=== PATIENT | male | born 1995 | race Caucasian/White ===

== ENCOUNTER 2019-08-28 15:44 | Outpatient (CLI) | payer OTHER | END 2019-08-28 15:45 | disposition critical access hospital (66) | LOC: EMS 15:44 | PROVIDERS: ATTEND Surgery | DX: S01.81XA Laceration without foreign body of other part of head, initial encounter (principal); S81.012A Laceration without foreign body, left knee, initial encounter; V57.5XXA Driver of pick-up truck or van injured in collision with fixed or stationary object in traffic accident, initial encounter; Y92.413 State road as the place of occurrence of the external cause | CPT/HCPCS: A0425; A0429 ==

== ENCOUNTER 2019-08-28 15:53 | Emergency (ER) | payer OTHER ==
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
[2019-08-28] MEDS ORDERED: LIDOCAINE-EPINEPH-TETRACAINE 3 ML SYRINGE TOP STA (16:16)
[2019-08-28] MEDS ORDERED: IOVERSOL 320 100 ML VIAL IVP ONE ×2 (16:21→18:08)
[2019-08-28 16:22] VITALS: BP 154/82
[2019-08-28] MEDS ORDERED: BUFFERED LIDOCAINE 10 ML SYRINGE SUBQ STA (16:30)
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
== END 2019-08-28 18:14 | disposition home or self-care (01) ==
LOC: EDUNIT# → ED 15:53
DX: S81.019A Laceration without foreign body, unspecified knee, initial encounter (principal); S01.81XA Laceration without foreign body of other part of head, initial encounter; S30.1XXA Contusion of abdominal wall, initial encounter; S27.329A Contusion of lung, unspecified, initial encounter; V89.2XXA Person injured in unspecified motor-vehicle accident, traffic, initial encounter; Y93.89 Activity, other specified; Y92.410 Unspecified street and highway as the place of occurrence of the external cause
CPT/HCPCS: 12001; 70450; 71260; 72125; 73564; 74177; 99283; 99284; Q9967